=== PATIENT | male | born 1965 | race American Indian/Alaskan Native ===

== ENCOUNTER 2018-02-04 01:51 | Emergency (ER) | payer MEDICARE ==
--- NOTE | 2018-02-04 02:55 | Emergency Department Report ---
ED Chest Pain HPI - General Stated Complaint: CHEST PAIN Time Seen by Provider: 02/04/18 02:53 ED Review of Systems ROS: Stated complaint: CHEST PAIN Other details as noted in HPI Critical care attestation.: If time is entered above; I have spent that time in minutes in the direct care of this critically ill patient, excluding procedure time. ED Disposition Condition: Stable Referrals: PRIMARY CARE, [Primary Care Provider] - 3-5 Days
--- NOTE | 2018-02-04 03:22 | XRay Report ---
FINAL REPORT PROCEDURE: XR CHEST ROUTINE 2V TECHNIQUE: Chest radiograph anteroposterior view. CPT 73400 HISTORY: Chest Pain COMPARISON: No prior studies are available for comparison. FINDINGS: Heart: Normal. Mediastinum/Vessels: Normal. Lungs/Pleural space: Normal. Bony thorax: No acute osseous abnormality. Life support devices: None. IMPRESSION: No acute cardiopulmonary abnormality.
[2018-02-04 03:41] LABS: Hematocrit 36.4 % (35.5-45.6); Hemoglobin 11.9 gm/dl (11.8-15.2); Mean Corpuscular HGB Conc 33 % (32-34); Mean Corpuscular Hemoglobin 24 pg (28-32); Mean Corpuscular Volume 72 fl (84-94); Platelet Count 265 K/mm3 (140-440); Red Blood Count 5.03 M/mm3 (3.65-5.03); Red Cell Distribution Width 15.4 % (13.2-15.2)
[2018-02-04 03:52] LABS: INR 1.03 (0.87-1.13)
[2018-02-04 03:53] LABS: Partial Thromboplastin Time 25.2 Sec. (24.2-36.6)
[2018-02-04 03:56] LABS: Alanine Aminotransferase 27 units/L (7-56); Albumin 4.8 g/dL (3.9-5); BUN/Creatinine Ratio 29; Blood Urea Nitrogen 32 mg/dL (9-20); Hemolysis Index 5
[2018-02-04] MEDS ORDERED: NACL 0.9% 1000 ML 1,000 ML IV ONE (04:26)
--- NOTE | 2018-02-04 04:27 | Emergency Department Report ---
ED General Adult HPI - General Chief complaint: Chest Pain Stated complaint: CHEST PAIN Time Seen by Provider: 02/04/18 02:53 Source: patient, EMS (ems notes not available at time of chart dictation), RN notes reviewed Mode of arrival: Ambulatory Limitations: Other (intoxication) - History of Present Illness Initial comments: This is a 52-year-old male who is unknown to this provider previously. Presents to the ER with a complaint of nontraumatic left-sided scapular pain that radiates down the left upper extremity, and numbness to the plantar aspect of his left foot. He reports consuming alcohol and crack prior to arrival. There is no trauma. Prior to what is documented in charge nurse and triage nurse's note, patient makes no complaint of chest pain to this provider. He denies headache, midline neck pain, chest pain, abdominal pain, shortness of breath, homicidality, suicidality. He also denies urinary symptoms. He requests detox or crack cocaine use. Besides today, his last ingestion of crack cocaine was 4 months ago. -: Gradual Location: left, upper extremity, lower extremity Radiation: distal Severity scale (0 -10): 7 Quality: burning Consistency: intermittent Improves with: none Worsens with: none Associated Symptoms: denies: confusion, chest pain, cough, diaphoresis, fever/ chills, headaches, loss of appetite, malaise, nausea/vomiting, rash, seizure, shortness of breath, syncope, weakness - Related Data Allergies Allergy/AdvReac Type Severity Reaction Status Date / Time No Known Allergies Allergy Unverified 02/04/18 03:00 ED Review of Systems ROS: Stated complaint: CHEST PAIN Other details as noted in HPI Comment: All other systems reviewed and negative ED Past Medical Hx - Past Medical History Previous Medical History?: Yes Hx Hypertension: Yes Hx Heart Attack/AMI: Yes - Surgical History Past Surgical History?: No - Social History Smoking Status: Never Smoker Substance Use Type: Alcohol, Cocaine ED Physical Exam - General Limitations: Other (intoxication) General appearance: alert, in no apparent distress - Head Head exam: Present: atraumatic, normocephalic - Eye Eye exam: Present: normal appearance, EOMI. Absent: nystagmus - ENT ENT exam: Present: normal exam, normal orophraynx, mucous membranes moist, normal external ear exam - Neck Neck exam: Present: normal inspection, full ROM - Respiratory Respiratory exam: Present: normal lung sounds bilaterally. Absent: respiratory distress - Cardiovascular Cardiovascular Exam: Present: regular rate, normal rhythm, normal heart sounds. Absent: bradycardia, tachycardia, irregular rhythm, systolic murmur, diastolic murmur, rubs, gallop - GI/Abdominal GI/Abdominal exam: Present: soft, normal bowel sounds. Absent: distended, tenderness, guarding, rebound, rigid, pulsatile mass - Rectal Rectal exam: Present: deferred - Extremities Exam Extremities exam: Present: normal inspection, full ROM, normal capillary refill. Absent: tenderness, pedal edema, joint swelling, calf tenderness ( there is no palpable cord. There is a negative Homans sign) - Back Exam Back exam: Present: normal inspection, full ROM. Absent: tenderness, CVA tenderness (R), paraspinal tenderness, vertebral tenderness - Neurological Exam Neurological exam: Present: alert, oriented X3, CN II-XII intact, normal gait, other (Extraocular movements intact. Tongue midline. No facial droop. Facial sensation intact to light touch in the V1, V2, V3 distribution bilaterally. 5 and 5 strength in 4 extremities.. Sensation is intact to light touch in 4 extremities.). Absent: motor sensory deficit - Psychiatric Psychiatric exam: Absent: homicidal ideation, suicidal ideation - Skin Skin exam: Present: warm, dry, intact, normal color. Absent: rash ED Course Vital Signs 02/04/18 02/04/18 02/04/18 03:00 03:01 04:00 Temperature 98.2 F Pulse Rate 96 H 98 H 93 H Respiratory 18 15 15 Rate Blood Pressure 123/82 122/82 110/62 Blood Pressure 122/82 [Left] O2 Sat by Pulse 98 98 96 Oximetry 02/04/18 05:01 Temperature Pulse Rate Respiratory 15 Rate Blood Pressure 110/62 Blood Pressure [Left] O2 Sat by Pulse 98 Oximetry - Reevaluation(s) Reevaluation #1: 02/04/18 05:30 Differential diagnosis, including but not limited to: Crack cocaine ingestion, radiculopathy, Assessment and plan: 52-year-old male status post alcohol and crack ingestion, with the complaint of left shoulder blade pain that radiates down the left arm, makes no complaint of chest pain or shortness of breath, has no pulmonary embolus or DVT risk factors. He is clinically intoxicated but does not require 1013 as he is pleasant, calm and cooperative. Serum toxicology studies are pending. EKG was unchanged 2, initial CK was 900, disseminated definition of rhabdomyolysis. Patient requested detox for crack cocaine, and will be provided outpatient resources. Based on the history, patient low risk by the heart score. No pulmonary embolus or DVT risk factors. ED Medical Decision Making - Lab Data Result diagrams: 02/04/18 03:22 02/04/18 03:22 Vital Signs 02/04/18 02/04/18 02/04/18 03:00 03:01 04:00 Temperature 98.2 F Pulse Rate 96 H 98 H 93 H Respiratory 18 15 15 Rate Blood Pressure 123/82 122/82 110/62 Blood Pressure 122/82 [Left] O2 Sat by Pulse 98 98 96 Oximetry 02/04/18 05:01 Temperature Pulse Rate Respiratory 15 Rate Blood Pressure 110/62 Blood Pressure [Left] O2 Sat by Pulse 98 Oximetry Lab Results 02/04/18 02/04/18 02/04/18 Range/Units 03:22 03:22 03:22 WBC 10.3 (4.5-11.0) K/mm3 RBC 5.03 (3.65-5.03) M/mm3 Hgb 11.9 (11.8-15.2) gm/dl Hct 36.4 (35.5-45.6) % MCV 72 L (84-94) fl MCH 24 L (28-32) pg MCHC 33 (32-34) % RDW 15.4 H (13.2-15.2) % Plt Count 265 (140-440) K/mm3 PT 14.0 (12.2-14.9) Sec. INR 1.03 (0.87-1.13) APTT 25.2 (24.2-36.6) Sec. Sodium 139 (137-145) mmol/L Potassium 4.2 (3.6-5.0) mmol/L Chloride 100.4 (98-107) mmol/L Carbon Dioxide 20 L (22-30) mmol/L Anion Gap 23 mmol/L BUN 32 H (9-20) mg/dL Creatinine 1.1 (0.8-1.5) mg/dL Estimated GFR > 60 ml/min BUN/Creatinine Ratio 29 % Glucose 107 H (75-100) mg/dL Calcium 9.0 (8.4-10.2) mg/dL Total Bilirubin 0.60 (0.1-1.2) mg/dL AST 36 (5-40) units/L ALT 27 (7-56) units/L Alkaline Phosphatase 41 (35-129) units/L Total Creatine Kinase 995 H (55-170) units/L Troponin T < 0.010 (0.00-0.029) ng/mL Total Protein 8.1 (6.3-8.2) g/dL Albumin 4.8 (3.9-5) g/dL Albumin/Globulin Ratio 1.5 % Salicylates (2.8-20.0) mg/dL Acetaminophen (10.0-30.0) ug/mL 02/04/18 02/04/18 Range/Units 03:22 03:22 WBC (4.5-11.0) K/mm3 RBC (3.65-5.03) M/mm3 Hgb (11.8-15.2) gm/dl Hct (35.5-45.6) % MCV (84-94) fl MCH (28-32) pg MCHC (32-34) % RDW (13.2-15.2) % Plt Count (140-440) K/mm3 PT (12.2-14.9) Sec. INR (0.87-1.13) APTT (24.2-36.6) Sec. Sodium (137-145) mmol/L Potassium (3.6-5.0) mmol/L Chloride (98-107) mmol/L Carbon Dioxide (22-30) mmol/L Anion Gap mmol/L BUN (9-20) mg/dL Creatinine (0.8-1.5) mg/dL Estimated GFR ml/min BUN/Creatinine Ratio % Glucose (75-100) mg/dL Calcium (8.4-10.2) mg/dL Total Bilirubin (0.1-1.2) mg/dL AST (5-40) units/L ALT (7-56) units/L Alkaline Phosphatase (35-129) units/L Total Creatine Kinase (55-170) units/L Troponin T (0.00-0.029) ng/mL Total Protein (6.3-8.2) g/dL Albumin (3.9-5) g/dL Albumin/Globulin Ratio % Salicylates 1.6 L (2.8-20.0) mg/dL Acetaminophen < 5.0 L (10.0-30.0) ug/mL - EKG Data -: EKG Interpreted by Me - EKG Data 02/04/18 05:33 Normal sinus, 96 beats per minutes, normal axis, QTC prolonged, not a STEMI, motion artifact, EKG #1 is also unchanged - Radiology Data Radiology results: report reviewed, image reviewed X-ray of the chest is negative for acute disease - Medical Decision Making Differential diagnosis, including but not limited to: Polysubstance abuse, radiculopathy, medical clearance Assessment and plan: 52-year-old male who is intoxicated, does not meet 1013 criteria, has an unremarkable physical exam, does not have chest pain, has no clinical indication of epidural compression syndrome at this time. Troponin 2 , EKG 2, observed pending clinical sobriety. There is no history of head trauma. Critical care attestation.: If time is entered above; I have spent that time in minutes in the direct care of this critically ill patient, excluding procedure time. ED Disposition Clinical Impression: Polysubstance abuse Disposition: DC-01 TO HOME OR SELFCARE Is pt being admited?: No Does the pt Need Aspirin: No Condition: Stable Instructions: Polysubstance Abuse (ED) Additional Instructions: Avoid consumption of crack cocaine. Moderate consumption of alcohol. Follow- up with the primary care doctor or supervisor compressed yeast within the next week. Return to the ER right away with new pain, worsened pain, migration of pain, fevers, chills, lethargy, irritability, projectile vomiting, change in mental status, confusion, inability to tolerate liquid feeds. Referrals: PRIMARY CARE, [Primary Care Provider] - 3-5 Days ROBERTO ALBARADO MD [Staff Physician] - 3-5 Days [facility] [Provider Group] - 3-5 Days [facility] [Provider Group] - 3-5 Days
[2018-02-04 08:00] VITALS: BP 108/62
== END 2018-02-04 12:49 | disposition home or self-care (01) ==
LOC: ED 01:51
DX: F10.129 Alcohol abuse with intoxication, unspecified (principal); F14.10 Cocaine abuse, uncomplicated; R51 Headache; R20.0 Anesthesia of skin
CPT/HCPCS: 36415; 71046; 80053; 82550; 84484; 85027; 85610; 85730; 93005; 93010; 99285; G0480; J7030; 80320